=== PATIENT | male | born 1935 ===

== ENCOUNTER 2018-07-10 15:50 | Emergency (ER) | payer MEDICARE, OTHER ==
--- NOTE | 2018-07-10 16:34 | ED PDOC ---
HPI: Psych/Substance Abuse Time Seen by Provider: 07/10/18 16:08 Chief Complaint (Nursing): Psychiatric Evaluation Chief Complaint (Provider): Psychiatric Evaluation History Per: Other ([facility] ) History/Exam Limitations: no limitations Onset/Duration Of Symptoms: Hrs Current Symptoms Are (Timing): Still Present Suicide/Self Injury Attempted (Context): None Modifying Factor(s): None Additional Complaint(s): 82 y/o male with a PMHx of HTN, DM and colon cancer with a colostomy presents to the ED for evaluation of aggressive behavior and agitation [facility] over the last few days. [facility] states symptoms were acutely worse today with patient being aggressive to staff and refusing medications. Patient sent for further evaluation. Patient offers no complaints. Patient states he was sent to the ED for evaluation of high blood sugar and high blood pressure. PMD: Dr. Matias Past Medical History Reviewed: Historical Data, Nursing Documentation, Vital Signs Vital Signs: Last Vital Signs Temp 98.2 F 07/10/18 15:52 Pulse 78 07/10/18 15:52 Resp 18 07/10/18 15:52 BP 187/72 H 07/10/18 15:52 Pulse Ox 99 07/10/18 15:52 - Medical History PMH: Diabetes, HTN Other PMH: Colon Cancer - Surgical History Other surgeries: Colostomy - Family History Family History: States: Unknown Family Hx - Living Arrangements Living Arrangements: [facility] - Social History Current smoker - smoking cessation education provided: No Ex-Smoker (has not smoked in the last 12 months): Yes - Allergies Allergies/Adverse Reactions: Allergies Allergy/AdvReac Type Severity Reaction Status Date / Time No Known Allergies Allergy Verified 07/10/18 15:52 Review of Systems ROS Statement: Except As Marked, All Systems Reviewed And Found Negative Psych: Positive for: Other (Psychiatric Evaluation for aggressive behavior) Physical Exam - Reviewed Nursing Documentation Reviewed: Yes Vital Signs Reviewed: Yes - Physical Exam Appears: Positive for: No Acute Distress (cooperative and pleasant) Head Exam: Positive for: ATRAUMATIC, NORMOCEPHALIC Skin: Positive for: Warm, Dry Eye Exam: Positive for: EOMI, PERRL ENT: Positive for: Pharynx Is (clear) Neck: Positive for: Painless ROM, Supple Cardiovascular/Chest: Positive for: Regular Rate, Rhythm. Negative for: Murmur Respiratory: Positive for: Normal Breath Sounds. Negative for: Respiratory Distress Gastrointestinal/Abdominal: Positive for: Soft, Other (Colostomy noted in the left lower quadrant with clean stoma. No surrounding erythema.). Negative for: Tenderness Back: Positive for: Normal Inspection. Negative for: Decreased ROM Extremity: Positive for: Normal ROM. Negative for: Capillary Refill Lymphatic: Negative for: Adenopathy Neurologic/Psych: Positive for: Oriented (x2). Negative for: Motor/Sensory Deficits - Laboratory Results Result Diagrams: 07/10/18 17:35 07/10/18 17:35 - ECG O2 Sat by Pulse Oximetry: 99 (RA) Pulse Ox Interpretation: Normal Medical Decision Making Medical Decision Making: Time: 1608 Impression: Aggressive Behavior Differentials include but not limited to Dementia, dehydration, UTI, metabolic encephalopathy and infection Plan: -- CMP -- Magnesium -- Phosphorus -- TSH -- Troponin I -- Valproic Acid -- CBC with differentials -- CXR Portable -- Urine Culture -- Glucose, Blood, POC -- Urinalysis Labs demonstrated mild renal insufficiency without electrolyte abnormalities and without urine abnormalities. DW Dr Matias PMD. Findings are unlikely cause of patient's behavior and can be workedup outpatient or if while pt is admitted to psych. Medically stable for psychiatric evaluation and admission if necessary. Evaluated by MERCEDEZ Thomas who dw Psych Dr De La Cruz. Pt stable for dc. While waiting for transport back to skilled nursing, pt became agitated. Haldol given to relief acute agitation. Scribe Attestation: Documented by Kim Broderick, acting as a scribe for Eduarda Roy MD. Provider Scribe Attestation: All medical record entries made by the Scribe were at my direction and personally dictated by me. I have reviewed the chart and agree that the record accurately reflects my personal performance of the history, physical exam, medical decision making, and the department course for this patient. I have also personally directed, reviewed, and agree with the discharge instructions and disposition. Disposition - Clinical Impression Clinical Impression: Renal insufficiency, Dementia Discussed With Dr.: Eran Matias Counseled Patient/Family Regarding: Studies Performed - Disposition Referrals: Eran Matias MD [Staff Provider] - 07/11/18 Disposition: Routine/Home Disposition Time: 20:36 Condition: GOOD Instructions: Dementia (DC) Forms: [facility] (Mozambican)
--- NOTE | 2018-07-10 16:50 | RAD ---
Date of service: 07/10/2018 HISTORY: AMS COMPARISON: No prior. FINDINGS: LUNGS: The lungs are well inflated and clear. PLEURA: No significant pleural effusion identified, no pneumothorax apparent. CARDIOVASCULAR: The heart is normal in size. Atherosclerotic aortic arch calcifications are present. OSSEOUS STRUCTURES: No significant abnormalities. VISUALIZED UPPER ABDOMEN: Normal. OTHER FINDINGS: None. IMPRESSION: No active pulmonary disease.
[2018-07-10 17:49] LABS: GRANULAR CAST 4 /lpf (0-1); SQUAMOUS EPITHIAL 1 /hpf (0-5); URINE BILIRUBIN NEGATIVE (NEGATIVE); URINE BLOOD NEGATIVE (NEGATIVE); URINE CLARITY SLIGHTY-CLOUDY (Clear); URINE COLOR YELLOW (YELLOW); URINE GLUCOSE (UA) NEG (Normal); URINE LEUKOCYTE ESTERASE NEG Leu/uL (Negative); URINE PROTEIN 30 mg/dL (NEGATIVE); URINE UROBILINOGEN 0.2-1.0 mg/dL (0.2-1.0)
[2018-07-10 17:52] LABS: BASO # 0.1 K/uL (0.0-0.2); BASO % 1.1 % (0.0-2.0); EOS # 0.2 K/uL (0.0-0.7); EOS % 3.8 % (0.0-4.0); HEMOGLOBIN 10.9 g/dL (12.0-18.0); LYMPH # 0.9 K/uL (1.0-4.3); LYMPH % 15.1 % (20.0-40.0); MEAN CORPUSCULAR HEMOGLOBIN 36.1 pg (27.0-31.0); MEAN PLATELET VOLUME 8.2 fl (7.2-11.7); MONO # 0.6 K/uL (0.0-0.8); MONO % 9.4 % (0.0-10.0); NEUT # 4.3 K/uL (1.8-7.0); NEUT % 70.6 % (50.0-75.0); NRBC % 0.1 % (0.0-0.0); RBC 3.02 Mil/uL (4.40-5.90); RED CELL DISTRIBUTION WIDTH 13.6 % (11.5-14.5); WHITE BLOOD COUNT 6.1 K/uL (4.8-10.8)
[2018-07-10 18:00] LABS: ALB/GLOB RATIO 1.5 (1.0-2.1); CALCIUM 9.1 mg/dL (8.4-10.2)
[2018-07-10 18:11] LABS: TROPONIN I 0.035 ng/mL (0.00-0.120)
[2018-07-11 00:04] VITALS: BP 169/93; PULSE 77; RESP 16; TEMP 98
[2018-07-12 00:25] VITALS: O2SAT 99
== END 2018-07-11 00:18 ==
LOC: H.ER 15:50
DX: F03.90 Unspecified dementia, unspecified severity, without behavioral disturbance, psychotic disturbance, mood disturbance, and anxiety (principal); N18.9 Chronic kidney disease, unspecified; E11.9 Type 2 diabetes mellitus without complications; I10 Essential (primary) hypertension; Z85.038 Personal history of other malignant neoplasm of large intestine
CPT/HCPCS: 71045; 80053; 80164; 81003; 82948; 83735; 84100; 84443; 84484; 85025; 87086; 96372; 99284; J1630

== ENCOUNTER 2018-09-04 16:37 | Emergency (ER) | payer MEDICARE, OTHER ==
[2018-09-04 17:50] LABS: CALCIUM 8.6 mg/dL (8.4-10.2)
--- NOTE | 2018-09-04 18:20 | ED PDOC ---
HPI: Psych/Substance Abuse Time Seen by Provider: 09/04/18 16:46 Chief Complaint (Nursing): Psychiatric Evaluation Chief Complaint (Provider): Psychiatric Evaluation Associated Symptoms: Agitation, Other (aggression) Additional History Per: Assisted Additional Complaint(s): Janna Be is a 82 year old male past medical history of HTN, DM and colon cancer with a colostomy, who presents to the ED for evaluation of aggressive behavior and agitation while at the senior care. Assisted states symptoms were acutely worse today with patient being aggressive to staff and refusing medications. Patient sent for further evaluation. Patient offers no complaints. PMD: Indira See Past Medical History Reviewed: Historical Data, Nursing Documentation, Vital Signs Vital Signs: Last Vital Signs Temp 98.7 F 09/04/18 16:40 Pulse 82 09/04/18 16:40 Resp 16 09/04/18 16:40 BP 156/72 H 09/04/18 16:40 Pulse Ox 98 09/04/18 16:40 - Medical History PMH: Anemia, Dementia, Diabetes, HTN Denies: Hepatitis, HIV, Seizures, Sexually Transmitted Disease - Surgical History Other surgeries: colonstomy - Family History Family History: States: Unknown Family Hx - Social History Current smoker - smoking cessation education provided: No Ex-Smoker (has not smoked in the last 12 months): Yes - Immunization History Hx Tetanus Toxoid Vaccination: No Hx Influenza Vaccination: Yes Hx Pneumococcal Vaccination: No - Allergies Allergies/Adverse Reactions: Allergies Allergy/AdvReac Type Severity Reaction Status Date / Time No Known Allergies Allergy Verified 09/04/18 16:39 Review of Systems ROS Statement: Except As Marked, All Systems Reviewed And Found Negative Psych: Positive for: Other (Aggression towards senior care staff) Physical Exam - Reviewed Nursing Documentation Reviewed: Yes Vital Signs Reviewed: Yes - Physical Exam Appears: Positive for: No Acute Distress Head Exam: Positive for: ATRAUMATIC, NORMOCEPHALIC Skin: Positive for: Warm, Dry Eye Exam: Positive for: EOMI, PERRL ENT: Positive for: Pharynx Is (clear) Neck: Positive for: Painless ROM, Supple Cardiovascular/Chest: Positive for: Regular Rate, Rhythm. Negative for: Murmur Respiratory: Positive for: Normal Breath Sounds. Negative for: Respiratory Distress Gastrointestinal/Abdominal: Positive for: Soft, Other (colostomy noted on the left lower quadrant with clean stoma. No surrounding erythema). Negative for: Tenderness Back: Positive for: Normal Inspection. Negative for: Decreased ROM Extremity: Positive for: Normal ROM. Negative for: Capillary Refill Lymphatic: Negative for: Adenopathy Neurologic/Psych: Positive for: Alert, Oriented (x2). Negative for: Motor/Sensory Deficits - Laboratory Results Result Diagrams: 09/04/18 17:33 09/04/18 17:33 - ECG O2 Sat by Pulse Oximetry: 98 (RA) Pulse Ox Interpretation: Normal Medical Decision Making Medical Decision Making: Initial Time: 17:07 Initial Impression: Aggressive behavior Differentials include but not limited to dementia, dehydration, UTI, metabolic encephalopathy and infection Plan: Saline Lock --1:1 observation --Chest x-ray --valproic acid --CBC with differential --BMP Time: 18:06 --Labs demonstrate stable renal disease and anemia. No acute abnormalities. --Crisis evaluation --Urinalysis Evaluate by MERCEDEZ Delgado. Pt stable for dc to [facility] Scribe Attestation: Documented by Gordy Bertrand, acting as a scribe for Eduarda Roy MD Provider Scribe Attestation: All medical record entries made by the Scribe were at my direction and personally dictated by me. I have reviewed the chart and agree that the record accurately reflects my personal performance of the history, physical exam, medical decision making, and the department course for this patient. I have also personally directed, reviewed, and agree with the discharge instructions and disposition. Disposition - Clinical Impression Clinical Impression: Dementia - Disposition Referrals: Esa Jacobson MD [Staff Provider] - Disposition: Other Institution Disposition Time: 18:00 Condition: STABLE Instructions: Dementia (DC) Forms: [employer] (Arabic)
[2018-09-05 01:12] VITALS: BP 142/68; PULSE 84; RESP 18; TEMP 99.1; O2SAT 99
--- NOTE | 2018-09-05 11:42 | RAD ---
Date of service: 09/04/2018 HISTORY: ams COMPARISON: 07/10/2018 FINDINGS: LUNGS: No active pulmonary disease. PLEURA: No significant pleural effusion identified, no pneumothorax apparent. CARDIOVASCULAR: No radiographic findings to suggest acute or significant cardiovascular disease. Atherosclerotic calcifications identified primarily aortic arch. OSSEOUS STRUCTURES: No significant abnormalities. VISUALIZED UPPER ABDOMEN: Normal. OTHER FINDINGS: None. IMPRESSION: No active disease. No significant interval change compared to the prior examination(s).
== END 2018-09-05 00:10 ==
LOC: H.ER 16:37
DX: F03.90 Unspecified dementia, unspecified severity, without behavioral disturbance, psychotic disturbance, mood disturbance, and anxiety (principal); D64.9 Anemia, unspecified; E11.9 Type 2 diabetes mellitus without complications; I10 Essential (primary) hypertension

== ENCOUNTER 2018-10-02 09:48 | Inpatient (IN) | payer MEDICARE, OTHER ==
[2018-10-02 09:53] VITALS: BMI 25.0
[2018-10-02] MEDS ORDERED: Sodium Chloride 0.9% 500 ML IV STA ×2 (10:16→11:41)
[2018-10-02] MEDS ORDERED: Sodium Chloride 0.9% 10 ML IV ONE (10:34)
[2018-10-02 10:35] LABS: BASO % 0.1 % (0.0-2.0); HEMOGLOBIN 11.2 g/dL (12.0-18.0); LYMPH # 0.2 K/uL (1.0-4.3); LYMPH % 3.5 % (20.0-40.0); MEAN CELL VOLUME 108.7 fl (80.0-94.0); MEAN CORPUSCULAR HEMOGLOBIN 35.4 pg (27.0-31.0); MEAN CORPUSCULAR HGB CONC 32.5 g/dL (33.0-37.0); MEAN PLATELET VOLUME 9.2 fl (7.2-11.7); MONO # 0.3 K/uL (0.0-0.8); MONO % 5.3 % (0.0-10.0); NEUT # 5.7 K/uL (1.8-7.0); NEUT % 91.1 % (50.0-75.0); NRBC % 0.1 % (0.0-0.0); PLATELET COUNT 326 K/uL (130-400); RBC 3.16 Mil/uL (4.40-5.90); RED CELL DISTRIBUTION WIDTH 14.6 % (11.5-14.5); WHITE BLOOD COUNT 6.3 K/uL (4.8-10.8)
[2018-10-02 10:42] LABS: ABG ALLEN TEST YES; ARTERIAL BLOOD GAS HCO3 22.2 mmol/L (21-28); ARTERIAL BLOOD GAS O2 SAT 100.9 % (95-98); ARTERIAL BLOOD GAS PCO2 34 mm/Hg (35-45); ARTERIAL BLOOD GAS PH 7.39 (7.35-7.45); ARTERIAL BLOOD GAS PO2 528 mm/Hg (80-100); ARTERIAL BLOOD GAS TCO2 21.6 mmol/L (22-28)
[2018-10-02 10:56] LABS: ALB/GLOB RATIO 1.3 (1.0-2.1); ALBUMIN 4.1 g/dL (3.5-5.0)
--- NOTE | 2018-10-02 11:19 | ED PDOC ---
HPI: Abdomen Time Seen by Provider: 10/02/18 09:56 Chief Complaint (Nursing): GI Problem Chief Complaint (Provider): GI Problem History Per: Other ([facility] transfer sheet) History/Exam Limitations: clinical condition Onset/Duration Of Symptoms: Days (x1) Additional Complaint(s): 83 year old male [facility] for evaluation of coffee ground vomitus since yesterday. Patient is non-verbal and further history is unable to be obtained. All known history obtained from the [facility] transfer sheet. Past Medical History Reviewed: Historical Data, Nursing Documentation, Vital Signs, Unable To Obtain Vital Signs: Last Vital Signs Temp 97.8 F 10/02/18 09:53 Pulse 105 H 10/02/18 10:41 Resp 30 H 10/02/18 10:41 BP 118/56 L 10/02/18 10:41 Pulse Ox 100 10/02/18 10:41 - Medical History PMH: Anemia, Dementia, Diabetes, HTN Denies: Hepatitis, HIV, Seizures, Sexually Transmitted Disease - Family History Family History: States: Unknown Family Hx - Living Arrangements Living Arrangements: [facility] - Immunization History Hx Tetanus Toxoid Vaccination: No Hx Influenza Vaccination: Yes Hx Pneumococcal Vaccination: No - Home Medications Home Medications: Ambulatory Orders Medication Instructions Recorded Acetaminophen [Tylenol 325mg tab] 650 mg PO Q6 PRN 10/02/18 Acetaminophen [Tylenol 325mg tab] 650 mg PO Q6 PRN 10/02/18 Aspirin [Ecotrin] 81 mg PO DAILY 10/02/18 Atorvastatin [Lipitor] 40 mg PO HS 10/02/18 Bisacodyl [Dulcolax] 10 mg LA DAILY PRN 10/02/18 Brimonidine Tartrate/Timolol 2 drop EACHEYE Q12 10/02/18 [Combigan 0.2%-0.5% Eye Drops] DiphenhydrAMINE [Benadryl] 25 mg PO Q6 PRN 10/02/18 Dronabinol [Marinol] 2.5 mg PO BID 10/02/18 LORazepam [Ativan] 0.5 mg PO Q12 PRN 10/02/18 Linagliptin [Tradjenta] 5 mg PO DAILY 10/02/18 Magnesium Hydroxide [Milk Of 30 ml PO HS PRN 10/02/18 Magnesia] Melatonin 5 mg PO HS 10/02/18 Metoprolol Succinate XL [Toprol XL] 12.5 mg PO DAILY 10/02/18 Multivitamin with Minerals 1 tab PO DAILY 10/02/18 [Bee-Zee] NIFEdipine ER [Procardia XL] 60 mg PO Q12 10/02/18 OLANZapine [Zyprexa] 2.5 mg PO Q6 PRN 10/02/18 Olanzapine [Zyprexa] 5 mg PO Q12 10/02/18 - Allergies Allergies/Adverse Reactions: Allergies Allergy/AdvReac Type Severity Reaction Status Date / Time No Known Allergies Allergy Verified 09/04/18 16:39 Review of Systems Review Of Systems: ROS cannot be obtained secondary to pt's inabilty to answer questions. Gastrointestinal: Positive for: Other (coffee ground vomitus) Physical Exam - Reviewed Nursing Documentation Reviewed: Yes Vital Signs Reviewed: Yes - Physical Exam Appears: Positive for: Non-toxic, No Acute Distress Head Exam: Positive for: ATRAUMATIC, NORMAL INSPECTION, NORMOCEPHALIC Skin: Positive for: Normal Color, Warm, Dry. Negative for: Rash Eye Exam: Positive for: EOMI, Normal appearance, PERRL ENT: Positive for: Normal ENT Inspection Neck: Positive for: Normal, Painless ROM, Supple Cardiovascular/Chest: Positive for: Regular Rate, Rhythm. Negative for: Murmur Respiratory: Positive for: Normal Breath Sounds. Negative for: Respiratory Di stress Gastrointestinal/Abdominal: Positive for: Soft, Distended (mild), Other (colostomy bag noted with dark stool) Back: Positive for: Normal Inspection. Negative for: L CVA Tenderness, R CVA Tenderness, Vertebral Tenderness Extremity: Positive for: Normal ROM. Negative for: Pedal Edema, Deformity Neurologic/Psych: Positive for: Alert (drowsy, but arousable) - Laboratory Results Result Diagrams: 10/02/18 10:26 10/02/18 10:26 - ECG O2 Sat by Pulse Oximetry: 100 - Critical Care Total Time (In Min): 60 Medical Decision Making Medical Decision Makin Impression: r/o GI bleed Plan: -EKG -ABG shock panel -CMP -Lipase -CBC -PTT/PT -CXR -NS 500mL IVB -Pantoprazole 40mg IV -Reevaluation Prior records obtained. Patient was seen and evaluated on 09/26 and blood work indicated a hemoglobin of 8.21. ------- Scribe Attestation: Documented by Roly Mina, acting as a scribe for Valorie Andino MD. Provider Scribe Attestation: All medical record entries made by the Scribe were at my direction and personally dictated by me. I have reviewed the chart and agree that the record accurately reflects my personal performance of the history, physical exam, medical decision making, and the department course for this patient. I have also personally directed, reviewed, and agree with the discharge instructions and disposition. 11.30a - patient re-evaluated. Per RN, NGT drained 1200cc of coffee grounds material. BP stable with slightly improved HR with IVFluids. Case d/w Dr. Ríos. Admitted to ICU. Case d/w Dr. Jacobson. Agrees and asked for GI consult with Dr. Tinoco. Patient with elevated lactate on initial abg. no source of infection. 12.05p - case d/w Dr. Tinoco. Thinks that patient has bowel obstruction as cause of large volume of NGT drainage and elevated H/H. Asked for CT abd/pelvis to be ordered. Disposition - Clinical Impression Clinical Impression: Gastrointestinal hemorrhage - Patient ED Disposition Is Patient to be Admitted: Yes Doctor Will See Patient In The: Hospital - Disposition Disposition: Transfer of Care Disposition Time: 11:45 Condition: GUARDED Instructions: Gastrointestinal Bleeding Forms: [facility] (Spanish) - Pt Status Changed To: Hospital Disposition Of: Inpatient - Admit Certification Admit to Inpatient:: After my assessment, the patient will require hospitalization for at least two midnights. This is because of the severity of symptoms shown, intensity of services needed, and/or the medical risk in this pa tient being treated as an outpatient. - POA Present On Arrival: None
[2018-10-02 12:28] LABS: BANDS 26 % (0-2); GIANT PLATELETS PRESENT; LARGE PLATELETS PRESENT; LYMPHOCYTE 9 % (20-50); METAMYELOCYTE 1 % (0-0); MONOCYTE 8 % (0-10); NEUTROPHIL 56 % (42-75); PLATELET ESTIMATE NORMAL (NORMAL); TOTAL CELLS COUNTED 100; TOXIC GRANULATION PRESENT
[2018-10-02 12:29] LABS: HYPOCHROMIC SLIGHT; PLATELET CLUMPS PRESENT
[2018-10-02] MEDS ORDERED: Sodium Chloride 0.9% 1,000 ML IV SCH ×2 (12:30→15:30)
--- NOTE | 2018-10-02 12:56 | RAD ---
Date of service: 10/02/2018 PROCEDURE: CHEST RADIOGRAPH, 1 VIEW HISTORY: gi bleeding COMPARISON: 09/04/2018 FINDINGS: LUNGS: Trace left inferolateral discoid atelectasis and/or fibrosis probably unchanged slightly different projection and conspicuity. No interval infiltrate or other interval pathology in the lungs appreciated. PLEURA: No pneumothorax or pleural fluid seen. CARDIOVASCULAR: There is presence of aortic atherosclerotic calcification on x-ray. Mild cardiomegaly with left ventricular enlargement configuration accentuated on this exam. No pulmonary venous congestion appreciated OSSEOUS STRUCTURES: Thoracic spondylosis. Bilateral shoulder arthrosis. VISUALIZED UPPER ABDOMEN: Nasogastric tube coursing along the stomach tip beyond the inferior edge of this study. OTHER FINDINGS: None. IMPRESSION: No acute or interval cardiopulmonary pathology appreciated. Interval insertion of NG tube-coursing over stomach. Tip excluded from field of view
[2018-10-02 13:14] LABS: VENOUS BLOOD GAS BASE EXCESS -3.5 mmol/L (0.0-2.0); VENOUS BLOOD GAS PCO2 60 mmHg (40-60); VENOUS BLOOD GAS PO2 18 mm/Hg (30-55); VENOUS BLOOD PH 7.23 (7.32-7.43)
--- NOTE | 2018-10-02 13:37 | CP.CCUPN ---
CCU Subjective - Physician Review Subjective (Free Text): Interim events reviewed, discussed with ER MD, no history obtainable from patient, lying in bed with eyes closed and aphasic / non-conversant, moaning and resisting during exam. BIBA for vomiting coffee grounds x 1 day, with dark stool noted in ostomy bag. NGT placed in ER and drained dark brownish fluid, approx. 250 ml volume so far. No hypotension reported, but SBP on admission approx. 118, improved to 130 after 2 liters fluid challenge, Tachycardic with HR 110, and down to 100 after fluid challenge. Other vitals and I/O's reviewed. No fever spikes SBPs 130s after fluid challenges, HR 108, breathing 23, spO2 100% on RA. ROS: No other pertinent negs or positives on 10+ system review obtainable. ALLERGIES: NKDA Home Meds: ASA, Lipitor, Dulcolax, Brim/Gerhard eye gtts, Marinol, Tradjenta, Ativan prn, Melatonin, Metoprolol, MVIs, Nifedipine ER, Zyprexa PMSFH: Dementia, HTN, DM II, SBO with colostomy, neg tobacco history, FH unknown. All other Nursing and physician documentation reviewed to date; no new pertinent info noted relevant to current medical problems. EXAM- HEENT: no icterus, no gaze preference, Pupils 3 mm and reactive, gag present NECK: No JVD visible, supple, carotids equal upstroke bilat/no bruit CHEST: decreased BS at the bases, no wheezes audible HEART: regular, distant, S1S2, no rubs ABD: soft and tenderness on deep epi- and para-gastric palpation, no tympany, no guarding, no organomegaly, BS hypoactive. Ostomy draining and leaking coffee ground stool and fluid. EXT: trace LE edema, no calf tenderness or palpable cords, distal pulses intact and symmetrical, no cyanosis NEURO: withdraws legs to pain, moves upper arms and hands spontaneously. SKIN: no rashes, warm and dry LABS: WBC= 6.3 with 26% BANDS HGB= 11.2 PLTs= 326K Admission Coags= pending Na= 142 K= 4.8 WJ=169 HCO3= 19 BUN/Cr= 61/2.7 BS= 293 LACTATE = 9.3 EKG: sinus 108/min, RBBB, T invers V1-V4 CXR: clear bilat (my interp). IMPRESSION / MAJOR PROBLEMS NOW: 1. Severe Sepsis without obvious Shock State, r/o Intra-abdominal source: mesenteric Ischemia and or Bowel syndrome. 2. Acute Anemia with hemoconcentration; 2 UGIB 3. Azotemia / Dehydration, r/o MITUL, ATN 4. H/o HTN, DM II; r/o DKA Hyperosmolar Hyperglycemic state PLAN: 1. Add 3rd fluid chaleenge 1000ml saline 2. Culture blood and urine for now. 3. Empiric broad spectrum abx: Maxipime, Flagyl, Vanco 4. CT AP; consider General Surgical eval, GI eval. 5. IV PPi drip. 6. Serial Hgb/Hct. 7. Serial Lactates, check PCT level. 8. Clarify any Advance Directives, none known so far, otherwise Full Code status. 9. See Orders, discussed with Resident Dr. Chanell Morales.
[2018-10-02] MEDS ORDERED: Pantoprazole 40 MG in Sodium Chloride 0.9% 100 ML IVPB SCH (13:45)
--- NOTE | 2018-10-02 15:06 | CT ---
Date of service: 10/02/2018 PROCEDURE: CT Abdomen and Pelvis without intravenous contrast HISTORY: per Dr. Tinoco, suspect SBO COMPARISON: None. TECHNIQUE: CT scan of the abdomen and pelvis was performed without administration of intravenous contrast. Oral contrast was not administered. Coronal and sagittal reformatted images were obtained. . Radiation dose: Total exam DLP = 716.53 mGy-cm. This CT exam was performed using one or more of the following dose reduction techniques: Automated exposure control, adjustment of the mA and/or kV according to patient size, and/or use of iterative reconstruction technique. FINDINGS: LOWER THORAX: There is subsegmental atelectasis/scarring in the lower lobes. There is moderate cardiomegaly. There are small pleural effusions and trace pericardial effusion. LIVER: Normal in size. No intrahepatic ductal dilatation. There is extensive gas in the left portal vein and branches, proximal right portal vein and branches, main portal vein and in the superior mesenteric vein and proximal branches. GALLBLADDER AND BILE DUCTS: No calcified gallstones. No biliary dilatation PANCREAS: Normal in size. No ductal dilatation. SPLEEN: Normal in size. ADRENALS: Diffuse thickening. No discrete nodule. KIDNEYS AND URETERS: Normal in size without nephrolithiasis. No hydronephrosis. VASCULATURE: No aortic aneurysm. Extensive aortic atherosclerotic calcifications present. BOWEL: The nasogastric tube terminates in the stomach. There is distension of stomach which contains gas and inspissated material. There is also thin layer of curvilinear air along the entire gastric lumen. There is moderate diffuse dilatation of the proximal and mid small bowel loops with diffuse circumferential mural thickening. There is curvilinear air in the periphery of the lumen of the proximal small bowel including the duodenum. The distal small bowel loops are decompressed. The ileocecal junction is normal. There is large amount of stool in the ascending and proximal transverse colon. The left colon is decompressed. Status post mid transverse colostomy. The exact transition point is not visualized but likely in the right lower abdomen. There are multiple surgical clips in the pelvis. APPENDIX: Not visualized. PERITONEUM: S small amount of fluid in the left paracolic gutter. No free air. LYMPH NODES: No enlarged lymph nodes. BLADDER: Decompressed with an indwelling Tran catheter. REPRODUCTIVE: The prostate gland s is normal in size. BONES: No acute fracture. OTHER FINDINGS: None. IMPRESSION: Findings are most compatible with acute high-grade small bowel obstruction with findings concerning for gastric emphysema and proximal small bowel ischemia. Extensive gas is noted in the portal venous system particularly in the left hepatic lobe and also in the portal and superior mesenteric veins. Critical findings were discussed with Dr. José Andino in the ER on 10/02/2018 at 2:45 p.m.
[2018-10-02] MEDS: metroNIDAZOLE 500mg/100ml NS 100 ML IVPB SCH ×2 (15:57→17:01)
[2018-10-02 16:56] LABS: INR 1.2; PROTHROMBIN TIME 14.1 Seconds (9.8-13.1)
[2018-10-02] MEDS: Cefepime 1 GM in Sodium Chloride 0.9% 100 ML IVPB SCH ×2 (16:56→17:00)
[2018-10-02 16:58] LABS: PARTIAL THROMBOPLASTIN TIME 27.4 Seconds (25.6-37.1)
--- NOTE | 2018-10-02 17:06 | CP.PCM.CON ---
History of Present Illness - History of Present Illness History of Present Illness: SURGERY CONSULT NOTE FOR DR. MICHEL Consult reason: SBO/Pneumatosis Intestinalis 83M presents to [facility] ER for coffee ground emesis that started yesterday. Patient has history of dementia and currently altered so unable to obtain subjective history from patient. Patient does have a history of colon cancer which was resected in the past. He also as a history of multiple small bowel obstruction which he had operation for also according to the daughter. 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 Currently in the ICU, patient has altered mental status, NGT in place with 1.5L coffee ground output. PMH: Colon Ca, HTN, DM, Dementia, Anemia PSH: Colon resection, Transverse colostomy, Ex-laps for SBO Social: Patient has a hx of tobacco abuse, denies alcohol, denies illicit drug use Allergies: NKDA Past Patient History - Past Medical History & Family History Past Medical History?: Yes - Past Social History Smoking Status: Never Smoked - CARDIAC Hx Cardiac Disorders: Yes Hx Hypertension: Yes - PULMONARY Hx Respiratory Disorders: No Hx Tuberculosis: No - NEUROLOGICAL Hx Neurological Disorder: Yes Hx Alzheimer's Disease: Yes HX Cerebrovascular Accident: No Hx Dementia: Yes Hx Dizziness: No Hx Meningitis: No Hx Migraine: No Hx Multiple Sclerosis: No Hx Paralysis: No Hx Parkinson's Disease: No Hx Seizures: No Hx Syncope: No Hx Transient Ischemic Attacks (TIA): No Hx Vertigo: No - HEENT Hx HEENT Problems: Yes - RENAL Hx Chronic Kidney Disease: Yes Other/Comment: cyst kidney - ENDOCRINE/METABOLIC Hx Endocrine Disorders: Yes Hx Diabetes Mellitus Type 2: Yes - HEMATOLOGICAL/ONCOLOGICAL Hx Blood Disorders: Yes Hx Anemia: Yes - INTEGUMENTARY Hx Dermatological Problems: No - MUSCULOSKELETAL/RHEUMATOLOGICAL Hx Musculoskeletal Disorders: Yes Hx Falls: Yes Hx Unsteady Gait: Yes - GASTROINTESTINAL Hx Gastrointestinal Disorders: Yes Hx Bowel Surgery: Yes Hx Colostomy: Yes Hx Nausea: Yes Hx Vomiting: Yes Other/Comment: colon cancer - GENITOURINARY/GYNECOLOGICAL Hx Genitourinary Disorders: Yes Hx Incontinence: Yes Hx Sexually Transmitted Disorders: No - PSYCHIATRIC Hx Psychophysiologic Disorder: No Hx Substance Use: No - SURGICAL HISTORY Hx Surgeries: Yes Other/Comment: SBO - colostomy - ANESTHESIA Hx Anesthesia: Yes Hx Anesthesia Reactions: No Hx Malignant Hyperthermia: No Has any member of the family had a problem w/ anesthesia?: No Meds Allergies/Adverse Reactions: Allergies Allergy/AdvReac Type Severity Reaction Status Date / Time No Known Allergies Allergy Verified 09/04/18 16:39 - Medications Medications: Current Medications Pantoprazole Sodium 40 mg/ (Sodium Chloride) 100 mls @ 20 mls/hr IVPB Q5H SIMI Last Admin: 10/02/18 15:44 Dose: 20 mls/hr Metronidazole (Flagyl 500mg/100ml Ns) 100 mls @ 100 mls/hr IVPB Q8 SIMI; Protocol Last Admin: 10/02/18 15:57 Dose: 100 mls/hr Cefepime HCl 1 gm/ Sodium (Chloride) 100 mls @ 100 mls/hr IVPB Q8 SIMI; Protocol Last Admin: 10/02/18 16:56 Dose: 100 mls/hr Sodium Chloride (Sodium Chloride 0.9%) 1,000 mls @ 175 mls/hr IV .Q5H43M SIMI Stop: 10/03/18 15:28 Last Admin: 10/02/18 15:49 Dose: 175 mls/hr Ondansetron HCl (Zofran Inj) 4 mg IVP Q6H PRN PRN Reason: Nausea/Vomiting Physical Exam - Constitutional Appears: Non-toxic Additional comments: Altered mental status - Head Exam Head Exam: ATRAUMATIC - ENT Exam ENT Exam: Mucous Membranes Moist - Respiratory Exam Respiratory Exam: Clear to Auscultation Bilateral, NORMAL BREATHING PATTERN - Cardiovascular Exam Cardiovascular Exam: REGULAR RHYTHM, +S1, +S2 - GI/Abdominal Exam GI & Abdominal Exam: Guarding, Rebound, Soft, Tenderness (Pain out of proportion to exam). absent: Distended, Firm, Rigid Additional comments: peritoneal signs, Transverse colostomy in place. - Extremities Exam Extremities exam: Negative for: pedal edema, tenderness - Neurological Exam Neurological exam: Altered - Skin Skin Exam: Dry, Intact, Normal Color, Warm Results - Vital Signs Recent Vital Signs: Last Vital Signs Temp 98.2 F 10/02/18 15:16 Pulse 100 H 10/02/18 15:16 Resp 31 H 10/02/18 14:51 BP 111/53 L 10/02/18 15:16 Pulse Ox 94 L 10/02/18 15:16 - Labs Result Diagrams: 10/02/18 10:26 10/02/18 10:26 Labs: Laboratory Results - last 24 hr 10/02/18 10/02/18 10/02/18 09:57 10:26 10:26 WBC 6.3 RBC 3.16 L Hgb 11.2 L Hct 34.4 L MCV 108.7 H D MCH 35.4 H MCHC 32.5 L RDW 14.6 H Plt Count 326 D MPV 9.2 Neut % (Auto) 91.1 H Lymph % (Auto) 3.5 L [place] % (Auto) 5.3 Eos % (Auto) 0.0 Baso % (Auto) 0.1 Neut # (Auto) 5.7 Lymph # (Auto) 0.2 L [place] # (Auto) 0.3 Eos # (Auto) 0.0 Baso # (Auto) 0.0 Neutrophils % (Manual) 56 Band Neutrophils % 26 H* Lymphocytes % (Manual) 9 L Monocytes % (Manual) 8 Metamyelocytes % 1 H Toxic Granulation Present Platelet Estimate Normal Plt Clumps, EDTA Present Large Platelets Present Giant Platelets Present Hypochromasia (manual) Slight PT INR pCO2 pO2 HCO3 ABG pH ABG Total CO2 ABG O2 Saturation ABG Base Excess Jese Test ABG Potassium VBG pH VBG pCO2 VBG HCO3 VBG Total CO2 VBG O2 Sat (Calc) VBG Base Excess VBG Potassium A-a O2 Difference Glucose Lactate FiO2 Blood Gas Comments Crit Value Called To Crit Value Called By Crit Value Read Back Blood Gas Notified Time Sodium 142 Potassium 4.8 Chloride 102 Carbon Dioxide 19 L Anion Gap 26 H BUN 61 H Creatinine 2.7 H Est GFR ( Amer) 28 Est GFR (Non-Af Amer) 23 POC Glucose (mg/dL) 245 H Random Glucose 293 H Serum Osmolality Lactic Acid Calcium 9.0 Total Bilirubin 0.7 AST 48 ALT 25 Alkaline Phosphatase 54 Total Protein 7.2 Albumin 4.1 Globulin 3.1 Albumin/Globulin Ratio 1.3 Lipase 102 Arterial Blood Potassium Venous Blood Potassium Valproic Acid Blood Type Blood Type Confirm Antibody Screen BBK History Checked 10/02/18 10/02/18 10/02/18 10:36 12:10 12:10 WBC RBC Hgb Hct MCV MCH MCHC RDW Plt Count MPV Neut % (Auto) Lymph % (Auto) [place]ro % (Auto) Eos % (Auto) Baso % (Auto) Neut # (Auto) Lymph # (Auto) [place] # (Auto) Eos # (Auto) Baso # (Auto) Neutrophils % (Manual) Band Neutrophils % Lymphocytes % (Manual) Monocytes % (Manual) Metamyelocytes % Toxic Granulation Platelet Estimate Plt Clumps, EDTA Large Platelets Giant Platelets Hypochromasia (manual) PT INR pCO2 34 L pO2 528 H HCO3 22.2 ABG pH 7.39 ABG Total CO2 21.6 L ABG O2 Saturation 100.9 H ABG Base Excess -3.6 L Jese Test Yes ABG Potassium 4.1 VBG pH VBG pCO2 VBG HCO3 VBG Total CO2 VBG O2 Sat (Calc) VBG Base Excess VBG Potassium A-a O2 Difference 143.0 Glucose 300 H Lactate 9.3 H* FiO2 100.0 Blood Gas Comments Lac=9.3 Crit Value Called To stephan Ariza Crit Value Called By 22 Crit Value Read Back Y Blood Gas Notified Time 1042 Sodium 138.0 Potassium Chloride 103.0 Carbon Dioxide Anion Gap BUN Creatinine Est GFR ( Amer) Est GFR (Non-Af Amer) POC Glucose (mg/dL) Random Glucose Serum Osmolality 323 H Lactic Acid Calcium Total Bilirubin AST ALT Alkaline Phosphatase Total Protein Albumin Globulin Albumin/Globulin Ratio Lipase Arterial Blood Potassium 4.1 Venous Blood Potassium Valproic Acid Blood Type Cancelled Blood Type Confirm Antibody Screen Cancelled BBK History Checked Cancelled 10/02/18 10/02/18 10/02/18 12:10 12:10 13:01 WBC RBC Hgb Hct MCV MCH MCHC RDW Plt Count MPV Neut % (Auto) Lymph % (Auto) [place] % (Auto) Eos % (Auto) Baso % (Auto) Neut # (Auto) Lymph # (Auto) [place] # (Auto) Eos # (Auto) Baso # (Auto) Neutrophils % (Manual) Band Neutrophils % Lymphocytes % (Manual) Monocytes % (Manual) Metamyelocytes % Toxic Granulation Platelet Estimate Plt Clumps, EDTA Large Platelets Giant Platelets Hypochromasia (manual) PT INR pCO2 pO2 18 L HCO3 ABG pH ABG Total CO2 ABG O2 Saturation ABG Base Excess Jese Test ABG Potassium VBG pH 7.23 L VBG pCO2 60 VBG HCO3 20.0 VBG Total CO2 26.9 VBG O2 Sat (Calc) 22.8 L VBG Base Excess -3.5 L VBG Potassium 5.0 A-a O2 Difference Glucose 236 H Lactate 8.5 H* FiO2 28.0 Blood Gas Comments Lac=8.5 Crit Value Called To stephan Ariza Crit Value Called By 22 Crit Value Read Back Y Blood Gas Notified Time 1313 Sodium 143.0 Potassium Chloride 101.0 Carbon Dioxide Anion Gap BUN Creatinine Est GFR ( Amer) Est GFR (Non-Af Amer) POC Glucose (mg/dL) Random Glucose Serum Osmolality Lactic Acid 7.4 H* Calcium Total Bilirubin AST ALT Alkaline Phosphatase Total Protein Albumin Globulin Albumin/Globulin Ratio Lipase Arterial Blood Potassium Venous Blood Potassium 5.0 Valproic Acid < 10.0 L Blood Type Blood Type Confirm Antibody Screen BBK History Checked 10/02/18 10/02/18 10/02/18 13:45 14:39 14:52 WBC RBC Hgb Hct MCV MCH MCHC RDW Plt Count MPV Neut % (Auto) Lymph % (Auto) [place]ferro % (Auto) Eos % (Auto) Baso % (Auto) Neut # (Auto) Lymph # (Auto) [place] # (Auto) Eos # (Auto) Baso # (Auto) Neutrophils % (Manual) Band Neutrophils % Lymphocytes % (Manual) Monocytes % (Manual) Metamyelocytes % Toxic Granulation Platelet Estimate Plt Clumps, EDTA Large Platelets Giant Platelets Hypochromasia (manual) PT INR pCO2 pO2 HCO3 ABG pH ABG Total CO2 ABG O2 Saturation ABG Base Excess Jese Test ABG Potassium VBG pH VBG pCO2 VBG HCO3 VBG Total CO2 VBG O2 Sat (Calc) VBG Base Excess VBG Potassium A-a O2 Difference Glucose Lactate FiO2 Blood Gas Comments Crit Value Called To Crit Value Called By Crit Value Read Back Blood Gas Notified Time Sodium Potassium Chloride Carbon Dioxide Anion Gap BUN Creatinine Est GFR ( Amer) Est GFR (Non-Af Amer) POC Glucose (mg/dL) 145 H Random Glucose Serum Osmolality Lactic Acid Calcium Total Bilirubin AST ALT Alkaline Phosphatase Total Protein Albumin Globulin Albumin/Globulin Ratio Lipase Arterial Blood Potassium Venous Blood Potassium Valproic Acid Blood Type O POSITIVE Blood Type Confirm O POSITIVE Antibody Screen Negative BBK History Checked No verified bt 10/02/18 16:16 WBC RBC Hgb Hct MCV MCH MCHC RDW Plt Count MPV Neut % (Auto) Lymph % (Auto) Tal[place]ferro % (Auto) Eos % (Auto) Baso % (Auto) Neut # (Auto) Lymph # (Auto) [place] # (Auto) Eos # (Auto) Baso # (Auto) Neutrophils % (Manual) Band Neutrophils % Lymphocytes % (Manual) Monocytes % (Manual) Metamyelocytes % Toxic Granulation Platelet Estimate Plt Clumps, EDTA Large Platelets Giant Platelets Hypochromasia (manual) PT 14.1 H INR 1.2 pCO2 pO2 HCO3 ABG pH ABG Total CO2 ABG O2 Saturation ABG Base Excess Jese Test ABG Potassium VBG pH VBG pCO2 VBG HCO3 VBG Total CO2 VBG O2 Sat (Calc) VBG Base Excess VBG Potassium A-a O2 Difference Glucose Lactate FiO2 Blood Gas Comments Crit Value Called To Crit Value Called By Crit Value Read Back Blood Gas Notified Time Sodium Potassium Chloride Carbon Dioxide Anion Gap BUN Creatinine Est GFR ( Amer) Est GFR (Non-Af Amer) POC Glucose (mg/dL) Random Glucose Serum Osmolality Lactic Acid Calcium Total Bilirubin AST ALT Alkaline Phosphatase Total Protein Albumin Globulin Albumin/Globulin Ratio Lipase Arterial Blood Potassium Venous Blood Potassium Valproic Acid Blood Type Blood Type Confirm Antibody Screen BBK History Checked Assessment & Plan - Assessment and Plan (Free Text) Assessment: 83M with high grade small bowel obstruction and bowel ischemia. Findings as per CT scan - small bowel obstruction, Bowel ischemia with portal venous gas Plan: - Admitted to ICU - NPO - Antibiotics - Pain control - NGT in place - Fluid resuscitation - Patient seen with Surgical Attending Dr. Michel and Data Analyst Etl Developer Dr. Carreno with daughter at bedside - Outcome of discussion was daughter did not want any intervention, but wanted patient to be comfortable - Awaiting rest of family to arrive - Further documentation to come Discussed with Dr. Malcolm Jaramillo, PGY3
[2018-10-02] MEDS ORDERED: Morphine 100 MG in Sodium Chloride 0.9% 100 ML IV SCH ×2 (17:45→18:42)
--- NOTE | 2018-10-02 18:50 | PCM.PROC ---
Procedures Attestation:: I certify that I have explained the specified Operation(s) or Procedure(s), risks, benefits and reasonable alternatives to the Patient and/or other person responsible. The opportunity was given to ask questions and all questions answered - Central Line Placement Right Femoral Aseptic technique was employed throughout the procedure: Hand Hygiene done prior to procedure, Full sterile barriers (mask, hair cover, sterile gown, sterile gloves), Full body sterile drape, Chloraprep Antiseptic: 2 minute prep for Femoral CVP Time Out Performed: Yes Pt. Placed on Pulse Ox Monitor: Yes Central Line Prep: Chlorhexidine-Alcohol Combination Local Anesthesia Used: Lidocaine 1% Amount of Anesthesia Used (mls): 5 Ultrasound Used for Placement: No Central Line Lumen Inserted: triple Post Procedure: Sutured in Place, Good Blood Return, All Ports Aspirated, Flushed, Capped, Sterile Dressing Applied Secured by: Suture Post procedure dressing: Clear vapor permeable, Chlorhexidine disc (Biopatch) Post Procedure X-Ray: No Patient Tolerated Procedure: Well Additional Comments: Procedure performed under emergent conditions in ICU for Severe Sepsis with impending shock state. Femoral site chosen due to unknown coagulopathy in order to avoid any bleeding complications. No complications noted during and after the procedure, patient tolerated well.
--- NOTE | 2018-10-02 19:39 | CARD ---
APPROVED REPORT Date of service: 10/02/2018 EKG Measurement Heart [id number] <Conclusion> Sinus tachycardia with premature atrial complexes Right bundle branch block Abnormal ECG
--- NOTE | 2018-10-02 20:05 | CP.PCM.PRO ---
Pronouncement of Note - Clinical Findings Physical Exam: No Response Verbal/Painful Stimuli, Absent Peripheral Puls es{Carotid & Femoral}, Absent Heart & Breath Sounds, No Pupillary Light Reflex, Absence of Vital Signs - Pronouncement Time Time of Pronouncement of : 19:40 - Notifications Pronouncement Notifications: Family Notified, Atending Notified [place] [id number]
[2018-10-02 21:35] VITALS: BP 65/39
[2018-10-02 21:36] VITALS: PULSE 0; RESP 0; TEMP 0; O2SAT 0
--- NOTE | 2018-10-03 09:11 | CON ---
DATE: 10/02/2018 ADDENDUM TO CONSULTATION FROM RESIDENT ON 10/02/18 This is an 83-year-old male very well known to me with history of colon cancer and multiple admissions to multiple institutions for intestinal obstruction. I last saw him at [facility] with a partial intestinal obstruction which we solved spontaneously. The patient had a transverse colostomy at [place] for advanced colorectal carcinoma and has been admitted multiple times for partial obstruction. At this time, the patient was taken to the emergency room because of severe abdominal pain and black vomitus. The consultation was formulated and discussed with the resident. The patient at this point is extremely ill with a very tender tense abdomen. The CT scan shows pneumatosis intestinalis and also shows portal vein gas. DIAGNOSIS: Acute abdomen most likely secondary to gangrene of the bowel. I discussed at length with the daughter who is present and is well known to me as well. She does not want any aggressive treatments, does not want intubation and does not want any surgical intervention. At this point, I discussed the case with Dr. Ríos, the soil engineer, and the daughter had decided to start him on hospice and possible morphine drip, but wanted to wait for the sister to see the father. Thank you for your consultation. We will follow with you. Tino Fowler MD
--- NOTE | 2018-10-04 02:00 | CON ---
DATE: 10/02/2018 REFERRING DOCTOR: Dr. Sheppard in the ER. INDICATION: Coffee-ground emesis. HISTORY OF PRESENT ILLNESS: This is an 83-year-old man, poor historian, , he suffers from coffee-ground emesis yesterday. The patient has had a cough and he also has intermittent obstructions and admitted for such, now comes with lactic acidosis and sepsis. CAT scan shows air in the wall of the colon and admitted for such. PAST MEDICAL HISTORY: As above. PAST SURGICAL HISTORY: As above. REVIEW OF SYSTEMS: All other systems have been reviewed. PHYSICAL EXAMINATION VITAL SIGNS: Here in the hospital, hypertension. HEENT: Head: Normocephalic and atraumatic. Eyes: Pupils are equally reactive to light bilaterally. No conjunctival pallor or icterus. NECK: Supple, normal range of motion. No lymphadenopathy appreciated. LUNGS: Coarse breath sounds bilaterally. Labored breathing. HEART: S1, S2. Tachycardia. ABDOMEN: Tender. Decreased bowel sounds. RECTAL: Deferred. EXTREMITIES: Pulses felt bilaterally. SKIN: Warm, dry, and intact. NEUROLOGIC: A and O x1. DATA: Labs reviewed. Radiology reviewed. CT shows pneumatosis. Labs included WBC 6.3, hemoglobin 9.3, hematocrit of 34, platelet count of 125. Lactic acid at 9. ASSESSMENT AND PLAN: This is an 83-year-old man with necrotic bowel, urgent antibiotic and surgical evaluation, ICU level care. Prognosis is poor. Eagle Wallis MD/ PhD cc: .
--- NOTE | 2018-10-07 12:32 | HP ---
Patient was not seen by me during this admission. CHIEF COMPLAINT: 83 year old male brought by EMS from [facility]. As per ED note and ICU note. HISTORY OF PRESENT ILLNESS: As per ED note and ICU note REVIEW OF SYSTEMS: Not performed. Patient before seen in hospital. PAST MEDICAL HISTORY: As per ED note and ICU note PAST SURGICAL HISTORY: As per ED note and ICU note PERSONAL HISTORY: Unknown MEDICATION: As per ED note and ICU note ALLERGIES: No known allergies FAMILY HISTORY: As per ED note and ICU note PHYSICAL EXAMINATION: Not performed. Patient before seen in hospital. GENERAL: n/a VITAL SIGNS: n/a HEENT: n/a HEART: n/a LUNGS: n/a ABDOMEN: n/a EXTREMITIES: n/a CENTRAL NERVOUS SYSTEM: n/a DIAGNOSTIC DATA: Not reviewed ADMITTING IMPRESSION: As per ICU note by Dr. Ríos who examined patient. PLAN: As per ED note and ICU note Patient was not seen by me during this admission. Patient was brought in by EMS seen and evaluated in the [facility] Emergency Department. Admitted to the intensive care unit. Patient prior to being seen by me. Pronouncement of was 10/02/2018 at 19:40. Indira See MD MTDD
--- NOTE | 2018-10-09 15:04 | PQF ---
PROVIDER RESPONSE TEXT: Severe Sepsis present on admission. See Microbiology results for definitively identified organism. REVIEWER QUERY TEXT: Rule Out Sepsis Clarification Rule out Sepsis is documented in the Medical Record. Please clarify whether: -- Patient has sepsis - Please document confirmed, suspected or probable causative organism - Please document confirmed, suspected or probable localized infection - Please clarify if sepsis is related to a device - Please clarify if sepsis was present on admission -- Sepsis was ruled out (include corresponding diagnosis for patient?s clinical picture and treatment ) -- Patient had sepsis which is resolved -- Other, please specify The patient's Clinical Indicators include: DOCUMENTATION OF SEVERE SEPSIS w/o Shock by [facility] ; PLEASE CLARIFY IF DX. of SEPSIS was ruled in or out. Query created by: Cesilia Fisher on 10/08/2018 12:58 PM Electronically signed by: Aiden Ríos DO 10/09/2018 3:00 PM
== END 2018-10-02 19:40 | DRG 871 ==
LOC: H.ER 09:48 → H.ERHOLD 11:58 → H.ICU/CCU 14:25
PROVIDERS: ADMIT Internal Medicine Pulmonary Disease; ATTEND Internal Medicine Pulmonary Disease
PROC: 06HY33Z Insertion of Infusion Device into Lower Vein, Percutaneous Approach (ICD-10-PCS; principal; 2018-10-02)
DX: A41.81 Sepsis due to Enterococcus (principal); K55.029 Acute infarction of small intestine, extent unspecified; K92.2 Gastrointestinal hemorrhage, unspecified; D62 Acute posthemorrhagic anemia; K56.699 Other intestinal obstruction unspecified as to partial versus complete obstruction; K55.8 Other vascular disorders of intestine; R65.20 Severe sepsis without septic shock; E86.0 Dehydration; E11.65 Type 2 diabetes mellitus with hyperglycemia; F03.90 Unspecified dementia, unspecified severity, without behavioral disturbance, psychotic disturbance, mood disturbance, and anxiety; I10 Essential (primary) hypertension; Z66 Do not resuscitate; Z93.3 Colostomy status; Z85.038 Personal history of other malignant neoplasm of large intestine; Z87.891 Personal history of nicotine dependence; Z79.84 Long term (current) use of oral hypoglycemic drugs; Z79.82 Long term (current) use of aspirin